=== PATIENT | male | born 1935 | race Caucasian/White ===

== ENCOUNTER → 2024-04-11 | Outpatient (REF) | payer MEDICARE | LOC: NM 10:47 | PROVIDERS: ATTEND Urology | DX: C18.9 Malignant neoplasm of colon, unspecified (principal); R97.20 Elevated prostate specific antigen [PSA] | CPT/HCPCS: 78306; A9503 ==

== ENCOUNTER → 2024-04-20 | Outpatient (REF) | payer MEDICARE ==
[~2024-04-20] MED LIST: IOPAMIDOL 370 MG/ML 100 ML INFUS..BTL INJ ONE; SODIUM CHLORIDE 0.9% 250ML 250 ML ONE
[2024-04-20 13:45] LABS: CREATININE, SERUM 0.99 mg/dL (0.72-1.25)
== END ==
LOC: CT 12:56
PROVIDERS: ATTEND Urology
DX: C18.9 Malignant neoplasm of colon, unspecified (principal); R97.20 Elevated prostate specific antigen [PSA]
CPT/HCPCS: 36415; 74178; 82565; 84520; J7050; Q9967